=== PATIENT | female | born 1980 | race Caucasian/White ===

== ENCOUNTER 2025-03-11 11:20 | Emergency (ER) | payer OTHER ==
[~2025-03-11] VITALS: Ht 180.3 cm; Wt 61.0 kg
[2025-03-11 11:25] VITALS: TEMP 37; O2SAT 99
[2025-03-11] MEDS ORDERED: LEVETIRACETAM 500MG PREMIX 100 ML IV ONE ×2 (12:00)
[2025-03-11 12:18] LABS: BASOPHILS % 0.4 % (0.0-2.0); EOSINOPHILS % 3.8 % (0.0-5.0); HEMATOCRIT. 42.0 % (36.0-48.0); HEMOGLOBIN. 14.1 g/dL (12.0-16.0); LYMPHOCYTES % 16.1 % (20.0-50.0); MEAN PLATELET VOLUME 8.3 fl (7.4-10.4); MONOCYTES % 9.4 % (2.0-8.0); NEUTROPHILS % 70.3 % (40.0-76.0); PLATELET 239 x1000/uL (130-400); RED BLOOD CELL COUNT 4.30 mill/uL (4.2-5.4); RED CELL DISTRIBUTION WIDTH 13.0 % (11.6-14.6)
[2025-03-11 12:39] LABS: HCG SCREEN NEGATIVE
[2025-03-11 12:43] LABS: CREATININE 0.8 mg/dL (0.6-1.0); UREA NITROGEN BLOOD 7 mg/dL (9-23)
[2025-03-11 12:45] LABS: ASPARTATE AMINOTRANSFERASE 41 IU/L (<34); BILIRUBIN TOTAL 0.5 mg/dL (0.1-1.0); PROTEIN TOTAL 6.8 g/dL (6.0-8.3)
[2025-03-11] MEDS: LEVETIRACETAM 1000MG PREMIX 100 ML IV SCH (12:46)
[2025-03-11] MEDS: LACTATED RINGERS 1,000 ML IV SCH (12:47)
[2025-03-11 14:34] VITALS: BP 125/68; PULSE 85; RESP 20; O2SAT 99
== END 2025-03-11 14:32 | disposition left against medical advice (07) ==
LOC: ER 11:20 → EDBEDREQ 13:39 → EDBEDREQTM 13:39 → ER 14:32 → CMPBEDREQ 03-12 07:34
DX: R56.9 Unspecified convulsions (principal); Z53.29 Procedure and treatment not carried out because of patient's decision for other reasons
CPT/HCPCS: 99285; 96365; 70450; 80053; 84703; 85025; 36415; J1953